=== PATIENT | female | born 2000 | race Caucasian/White ===

== ENCOUNTER → 2021-07-21 07:39 | Outpatient (BNVA) | payer MEDICAID, SELFPAY | PROVIDERS: Family Provider Family Medicine; Visit Provider Nurse Practitioner Women's Health | DX: N92.6 Irregular menstruation, unspecified (principal); Z82.79 Family history of other congenital malformations, deformations and chromosomal abnormalities | CPT/HCPCS: 81025 ==

== ENCOUNTER → 2021-08-22 08:19 | Outpatient (BNVA) | payer MEDICAID, SELFPAY | PROVIDERS: Family Provider Family Medicine; Visit Provider Obstetrics & Gynecology | DX: Z34.01 Encounter for supervision of normal first pregnancy, first trimester (principal) | CPT/HCPCS: 80307; 81000; 85027; 86592; 86762; 86803; 86850; 86900; 87086; 87340; 87491; 87591; 88175 ==

== ENCOUNTER → 2021-09-15 09:51 | Outpatient (BNVA) | payer MEDICAID, SELFPAY | PROVIDERS: Family Provider Family Medicine; Visit Provider Obstetrics & Gynecology | DX: O98.812 Other maternal infectious and parasitic diseases complicating pregnancy, second trimester (principal); A74.9 Chlamydial infection, unspecified | CPT/HCPCS: 84315; 87491 ==

== ENCOUNTER → 2021-10-11 10:56 | Outpatient (BNVA) | payer MEDICAID, SELFPAY | PROVIDERS: Family Provider Family Medicine; Visit Provider Obstetrics & Gynecology | DX: Z34.92 Encounter for supervision of normal pregnancy, unspecified, second trimester (principal); Z3A.19 19 weeks gestation of pregnancy | CPT/HCPCS: 76805 ==

== ENCOUNTER → 2021-11-10 09:22 | Outpatient (BNVA) | payer MEDICAID, SELFPAY | PROVIDERS: Family Provider Family Medicine; Visit Provider Obstetrics & Gynecology | DX: O26.899 Other specified pregnancy related conditions, unspecified trimester (principal); R31.9 Hematuria, unspecified | CPT/HCPCS: 82950; 84315; 87086 ==

== ENCOUNTER → 2021-11-20 08:29 | Outpatient (BNVA) | payer MEDICAID, SELFPAY | PROVIDERS: Family Provider Family Medicine; Visit Provider Obstetrics & Gynecology | DX: Z34.02 Encounter for supervision of normal first pregnancy, second trimester (principal) | CPT/HCPCS: 82951; 82952 ==

== ENCOUNTER → 2021-12-08 11:01 | Outpatient (BNVA) | payer MEDICAID, SELFPAY | PROVIDERS: Family Provider Family Medicine; Visit Provider Obstetrics & Gynecology | DX: Z34.02 Encounter for supervision of normal first pregnancy, second trimester (principal) | CPT/HCPCS: 84315; 85027 ==

== ENCOUNTER → 2021-12-22 08:42 | Outpatient (BNVA) | payer MEDICAID, SELFPAY | PROVIDERS: Family Provider Family Medicine; Visit Provider Obstetrics & Gynecology | DX: Z34.00 Encounter for supervision of normal first pregnancy, unspecified trimester (principal) | CPT/HCPCS: 84315; 87086 ==

== ENCOUNTER → 2022-02-02 11:01 | Outpatient (BNVA) | payer MEDICAID, SELFPAY | PROVIDERS: Family Provider Family Medicine; Visit Provider Obstetrics & Gynecology | DX: O99.013 Anemia complicating pregnancy, third trimester (principal) | CPT/HCPCS: 84315; 85025; 87081 ==

== ENCOUNTER → 2022-02-08 10:01 | Outpatient (BNVA) | payer MEDICAID, SELFPAY | PROVIDERS: Family Provider Family Medicine; Visit Provider Obstetrics & Gynecology | DX: Z34.00 Encounter for supervision of normal first pregnancy, unspecified trimester (principal) | CPT/HCPCS: 84315; 87086 ==

== ENCOUNTER → 2022-02-23 13:03 | Outpatient (BNVA) | payer MEDICAID, SELFPAY | PROVIDERS: Family Provider Family Medicine; Visit Provider Obstetrics & Gynecology | DX: Z34.93 Encounter for supervision of normal pregnancy, unspecified, third trimester (principal); Z3A.36 36 weeks gestation of pregnancy | CPT/HCPCS: 76816; 84315 ==

== ENCOUNTER → 2022-03-01 10:35 | Outpatient (BNVA) | payer MEDICAID, SELFPAY | PROVIDERS: Family Provider Family Medicine; Visit Provider Obstetrics & Gynecology | DX: O99.013 Anemia complicating pregnancy, third trimester (principal); Z82.79 Family history of other congenital malformations, deformations and chromosomal abnormalities | CPT/HCPCS: 76816; 76819; 84315; 87086 ==

== ENCOUNTER 2022-03-03 16:20 | Inpatient (IN) | payer MEDICAID, SELFPAY ==
[2022-03-03] VITALS (48 sets, daily range): BP systolic 98–148; BP diastolic 53–99; PULSE 58–96; RESP 16; TEMP 36.8; O2SAT 99–100; BMI 27.4
[2022-03-03] MEDS: miSOPROStol 100 mcg tablet 50 MCG PO (18:01)
--- NOTE | 2022-03-03 18:09 | P.HPUD_ITS ---
Labor & Delivery H&P Update Date of Procedure: March 03, 2022 Date H&P Performed: 03/03/22 Changes to previous documentation: Larissa is a 21 y/o 000 with an IUP 40W3D who presented for a scheduled elective IOL. This gestation has been complicated by Gonorrhea during early treatment and both her and partner, Miki were both adequately treated. GBS negative blood type A Rh+ the couple is expecting a daughter, Jolanta Azul. ROS: Denies headache, denies right upper quadrant pain, denies spots in vision, denies LOF, denies VB, denies uterine contractions, and appreciates good movement. PROCEDURE: 03/03/2022 at 5:40 PM * Bedside ultrasound revealed cephalic position * Place patient in the dorsolithotomy position * Inserted sterile speculum * Visualized the external os of the cervix which appeared closed * Grasped the Cook's balloon with ring forceps and then inserted into the external os * Past the Cook's into the uterus to the level of the vaginal balloon * Filled the uterine balloon with 80 mL of normal saline then removed the speculum * Filled the vaginal balloon with 60 mL of normal saline and then taped the catheter to the patient's thigh * Administered 50 mcg of misoprostol orally with intent to provide an additional 2 doses every 4 hours * Patient tolerated the procedure well albeit mild cramping ensued * EBL: None * Complications: None NST/MANAGER DRILLING: Baseline: 145 Variability: Moderate Accelerations: Present Decelerations: Absent [place]: Initially every 9 minutes--> after placement of Cook's catheter irregular with significant irritability Category: I Reactive/Passed Admission Diagnosis: Term @ 40W3D Primary indication for procedure: Desire of patient Planned procedure: Cervical ripening in anticipation of induction of labor
[2022-03-03 18:58] LABS: Basophils % 0.2 %; Eosinophils # 0.1 10^3/uL (0.0-0.8); Eosinophils % 0.6 %; Hematocrit 34.4 % (37.0-47.0); Hemoglobin 11.8 g/dL (11.5-15.3); Lymphocytes # 1.7 10^3/uL (0.8-4.8); Lymphocytes % 19.2 %; Mean Corpuscular HGB Conc 34.3 g/dL (30.0-36.0); Mean Corpuscular Hemoglobin 31.1 pg (28.0-34.0); Mean Corpuscular Volume 90.5 fl (81-99); Mean Platelet Volume 12.1 fL (7.4-10.4); Monocytes # 0.6 10^3/uL (0.2-0.9); Monocytes % 6.5 %; Neutrophils # 6.57 10^3/uL (1.8-7.7); Neutrophils % 73.1 %; Nucleated Red Blood Cells % 0 %; Platelet Count 221 10^3/cmm (130-400); Red Cell Distribution Width 12.4 % (12.1-15.1)
[2022-03-03] MEDS: lactated ringers 1,000 ML 999 ML IV ×2 (21:03→22:08)
--- NOTE | 2022-03-03 22:27 | ANES.PREANE2 ---
Pre-Anesthetic Assessment Height/Weight: Height 1.6 m Weight 70.307 kg Temp Pulse Resp BP Pulse Ox O2 Del Method 98.2 F 67 16 135/60 100 03/03/22 15:37 03/03/22 22:23 03/03/22 18:10 03/03/22 22:22 03/03/22 22:23 03/03/22 18:10 Preop Diagnosis: expected Labor Epidural Familial anesthetic complications: None Was Beta Yadi taken within 24 hours: N/A Was Clonidine taken within 24 hours: N/A Last intake: 03/03/22 @2100 Social No alcohol and No tobacco Exam alert, oriented x 3, clear to auscultation bilaterally and regular rate & rhythm Airway Submandibular: within normal limits Cervical ROM: within normal limits Mallampati: Class I History/ROS No significant history except as noted Pulmonary None reported CV/HEM None reported None reported Hepatic None reported GI None reported Metabolic None reported Musc/skel None reported Neuropsych None reported Anesthetic Plan ASA status: 2 Anesthesia: Anesthesia Evaluation and Regional (specify below) (Epidural) Risk of > 500 ml blood loss (7ml/kg in children): No Medications/Allergies Home Medications Medication Instructions Recorded Confirmed Last Taken Type prenat.vits,yvonne,bwy-gbfd-sdzqq 1 tab PO DAILY 07/21/21 03/01/22 Unknown History docusate sodium 100 mg capsule 100 mg PO BID 90 days #180 caps 12/11/21 03/01/22 Unknown Rx (Colace) ferrous sulfate 325 mg (65 mg 325 mg PO DAILY Anemia #90 tabs 01/05/22 03/01/22 Unknown Rx iron) tablet,delayed release Allergies Allergy/AdvReac Type Severity Reaction Status Date / Time No Known Allergies Allergy Verified 03/01/22 10:41 Current Medications Generic Name Dose Route Start Last Admin Trade Name Freq PRN Reason Stop Dose Admin Lactated Ringer's 1,000 mls @ 999 mls/hr 03/03/22 20:49 03/03/22 21:03 Lactated Ringers IV 999 mls/hr .Q1H1M PRN Administration See label comments PFSH Anesthesia Medical History No pertinent past medical history neghx: htn,dm,thyroid,dvt/pe PCP: None Surgical History No pertinent past surgical history Family History Grandmother Diabetes Maternal Denies family history of Colon cancer Ovarian cancer Heart disease Hypercholesteremia Breast cancer Hypertension Uterine cancer Thyroid disease Stroke Social History Smoking and tobacco status: never smoked Female Reproductive History : 1 Data Anesthesia : 03/03/22 15:45 Short CBC 03/03/22 Range/Units 15:45 WBC 9.0 (4.0-10.0) 10^3/uL Hgb 11.8 (11.5-15.3) g/dL Hct 34.4 L (37.0-47.0) % MCV 90.5 (81-99) fl Plt Count 221 (130-400) 10^3/cmm Neut % (Auto) 73.1 % Neut # (Auto) 6.57 (1.8-7.7) 10^3/uL Cardiac Studies: No Data to Display Anesthesia Procedures Date of Procedure 03/03/22 Epidural Time Out Performed: Yes Consents Signed: Procedure Consent Consent: from patient Lumbar Level: L4-L5 Epidural position: sitting Epidural procedure: sterile prep of area, 1% lidocaine to numb the area, 18 g needle, negative for paresthesia passed, neg for paresthesia, test dose given, 1.5% xylocaine 1:200k epi, placed PCEA, no systemic response, sterile dressing applied, L.U.D. no apparent complications and 0.2% Ropiavacaine @ mls/hr (13)
[2022-03-04] VITALS (65 sets, daily range): BP systolic 93–140; BP diastolic 46–89; PULSE 56–123; RESP 14–16; TEMP 36.3–37.7; O2SAT 98
[2022-03-04] MEDS: dextrose 5%-lactated ringers 1,000 ML 125 ML IV ×3 (01:54→12:44)
--- NOTE | 2022-03-04 06:50 | PC.NURSE ---
Vaginal Balloon deflated. 55ml removed, unable to remove any additional fluid.
[2022-03-04] MEDS: miSOPROStol 100 mcg tablet 50 MCG PO (07:33)
--- NOTE | 2022-03-04 10:39 | PC.NURSE ---
Cervical ripening balloon out with SVE at 1019. Balloon intact. SVE 6cm, 75%, -2 station. Pt believes her water broke because she felt a pop. No membranes were felt on SVE. No obvious fluid noted, small amount of brownish pink mucous discharge.
--- NOTE | 2022-03-04 11:40 | PM.OBGYPN ---
INFRASTRUCTURE ENGINEER Subjective Subjective: Interval history: Larissa?is a 21 y/o 000 with an IUP 40W4D who was admitted on 03/03/2022 for scheduled elective IOL. This gestation has been complicated by Gonorrhea during early treatment and both her and partner,?Miki?were both adequately treated.? GBS negative blood type A Rh+ the couple is expecting a daughter,?Jolanta Azul. HOSPITAL COURSE: Since admit has had Cook's Balloon for mechanical cervical ripening. The Vaginal balloon was deflated after 13.5 hours and the uterine balloon expelled on its own ~ 1000. Received 2 doses of 50 mcg PO misoprostol and an epidural without incident. ROS: Denies headache, denies right upper quadrant pain, denies spots in vision, endorses LOF, endorses; light VB, uterine contractions barely appreciated since epidural albeit now appreciating significant pressure, and still appreciates good movement. Labor: Dilation (cm): 7 Effacement (%): 80 Station: 0 Amniotic Membrane Status: Ruptured Monitor Mode: External Contraction Frequency: 3 Contraction Pattern: Regular Status: Category I (with intermittent II secondary to variables) Vitals/I&O/Wt Last Vital Signs Temp 99.3 F 03/04/22 10:27 Pulse 86 03/04/22 11:50 Resp 16 03/03/22 18:10 BP 126/74 03/04/22 11:50 Pulse Ox 99 03/03/22 22:38 O2 Del Method 03/03/22 18:10 03/03/22 03/04/22 03/04/22 22:59 06:59 14:59 Intake Total 1000 / 1000 443.75 / 1443.75 100 / 100 Output Total 800 / 800 Balance 1000 / 1000 -356.25 / 643.75 100 / 100 Weight last 48 hrs Weight 155 lb Physical Exam Const: COMMON NORMALS: no acute distress, average body habitus, patient oriented x3, no limitations, healthy appearing, alert and well nourished Neuro: COMMON NORMALS: patient oriented x3 SENSORIUM/ORIENTATION: Yes alert Urinary Catheter Management: Gaytan: Cath Placed During This Visit: yes Reason for Continuing Indwelling Catheter: Other Urinary Catheter Date of Insertion: 03/03/22 Urinary Catheter Time of Insertion: 23:30 Data : 03/03/22 15:45 A&P Assessment and plan (1) SROM (spontaneous rupture of membranes): Considering Pitocin augmentation however has made appropriate cervical change without further augmentation. Status: Acute (2) Alteration in comfort associated with uterine contractions: Continue Epidural Status: Acute (3) 40 weeks gestation of : Anticipate Status: Acute Attestations Medical Necessity Statement*: Labor management, delivery, care Coding Level of Care Code Acute Manager Enterprise Content Management for Chg Fwd Diagnoses SROM (spontaneous rupture of membranes) Alteration in comfort associated with uterine contractions N85.8 40 weeks gestation of Z3A.40
--- NOTE | 2022-03-04 11:43 | P.PN_ITS ---
RESISTOR TESTER Subjective Subjective: Interval history: Larissa?is a 21 y/o 000 with an IUP 40W4D who was admitted on 03/03/2022 for scheduled elective IOL. This gestation has been complicated by Gonorrhea during early treatment and both her and partner,?Miki?were both adequately treated.? GBS negative blood type A Rh+ the couple is expecting a daughter,?Jolanta Azul. HOSPITAL COURSE: Since admit has had Cook's Balloon for mechanical cervical ripening. The Vaginal balloon was deflated after 13.5 hours and the uterine balloon expelled on its own ~ 1000. Received 2 doses of 50 mcg PO misoprostol and an epidural without incident. ROS: Denies headache, denies right upper quadrant pain, denies spots in vision, endorses LOF, endorses; light VB, uterine contractions barely appreciated since epidural, and still appreciates good movement. Labor: Pain Control: tolerating well and epidural Dilation (cm): 5 Effacement (%): 75 Station: 0 Amniotic Membrane Status: Ruptured Monitor Mode: External Contraction Frequency: 3 Contraction Pattern: R egular Status: Category I Vitals/I&O/Wt Last Vital Signs 03/04/22 08:10 03/04/22 08:30 03/04/22 08:48 Temperature 99.7 F H Pulse Rate 61 66 Blood Pressure 127/80 126/82 03/04/22 08:50 03/04/22 09:10 03/04/22 09:30 Temperature Pulse Rate 68 70 80 Blood Pressure 118/76 120/76 119/81 03/04/22 09:51 03/04/22 10:10 03/04/22 10:27 Temperature 99.3 F Pulse Rate 78 78 Blood Pressure 120/70 140/89 03/04/22 10:30 03/04/22 10:50 Temperature Pulse Rate 87 67 Blood Pressure 118/75 123/75 03/03/22 03/04/22 03/04/22 22:59 06:59 14:59 Intake Total 1000 / 1000 443.75 / 1443.75 Output Total 800 / 800 Balance 1000 / 1000 -356.25 / 643.75 Weight last 48 hrs Weight 155 lb Physical Exam Const: COMMON NORMALS: no acute distress, average body habitus, patient oriented x3, no limitations, healthy appearing, alert and well nourished Eye: COMMON NORMALS: EOMs intact bilaterally Neck/C-Spine: COMMON NORMALS: full ROM Cardio: COMMON NORMALS: regular rate and regular rhythm RATE: regular rate RHYTHM: regular rhythm Neuro: COMMON NORMALS: patient oriented x3 and deep tendon reflexes 2+ bilaterally SENSORIUM/ORIENTATION: Yes alert Psych: COMMON NORMALS: mental status grossly normal, Normal thought process present, cooperative, normal affect, speech normal and activity/motor behavior normal SPEECH: Yes normal speech THOUGHT PROCESS: Normal thought process present Urinary Catheter Management: Gaytan: Cath Placed During This Visit: yes Reason for Continuing Indwelling Catheter: Other Urinary Catheter Date of Insertion: 03/03/22 Urinary Catheter Time of Insertion: 23:30 Data : 03/03/22 15:45 A&P Assessment and plan (1) 40 weeks gestation of : Status: Acute (2) Alteration in comfort associated with uterine contractions: Status: Acute (3) SROM (spontaneous rupture of membranes): Status: Acute Plan Early labor status post SROM with return of clear fluid * Pitocin augmentation * Continue to titrate Epidural * Anticipate Attestations Medical Necessity Statement*: Management of labor, delivery, and care Coding Level of Care Code Acute Water And Gas Helper for Chg Fwd Diagnoses 40 weeks gestation of Z3A.40 Alteration in comfort associated with uterine contractions N85.8 SROM (spontaneous rupture of membranes)
[2022-03-04] MEDS: acetaminophen 325 mg Tablet 650 MG PO (13:52)
[2022-03-04] MEDS: oxytocin 30 UNIT/500 ML BAG 999 UNIT IV (15:05)
[2022-03-04] MEDS: lidocaine 2% INJ 20 mL INJECTION (15:15)
--- NOTE | 2022-03-04 16:00 | PM.DELIVERY ---
Delivery Note: Date of delivery: March 04, 2022 Pre-delivery diagnoses: Desire for induction of labor IUP 40 W4D Post-delivery diagnoses: Status post term at 40 W4D Procedure: Normal spontaneous vaginal delivery Delivering Physician: Hina Ruvalcaba MD, FACOG Estimated blood loss (mL): 300 Findings: Second-degree perineal laceration with vaginal extension Viable Girl, Jolanta Azul APGARS: Weight: 3350 grams ( 7lbs and 6.17 oz) [place] was taken to the nursery for continued resuscitation secondary to slow transitioning. Ultimately, transferred out of hospital to [facility]. Pre-Delivery Course: Larissa?is a 21 y/o 000 with an I UP 40W4D dated by LMP and 9 week US who was admitted o n 03/03/2022 for sc heduled elective I OL. This gestation has been complica ottoniel by Gonorrhea d uring early treatm ent and both her a nd partner,?Miki?w ere both adequatel y treated.? GBS ne gative blood type A Rh+ the couple is expecting a da ughter,?Phoebe Dah willie. HOSPITAL COU RSE: Since admit h as had Cook's Ball oon for mechanical cervical ripening . The Vaginal ball oon was deflated a fter 13.5 hours an d the uterine ball oon expelled on it s own ~ 1000. Rece ived 2 doses of 50 mcg PO misoprosto l and an epidural without incident. Never required any further labor aug mentation. Labor:?? Course be wilfredo with placement of Cook's Balloon for mechanical ce rvical ripening. T he Vaginal balloon was deflated afte r 13.5 hours and t he uterine balloon expelled on its o wn ~ 1000. Receive d 2 doses of 50 mc g PO misoprostol a nd an epidural wit hout incident. Nev er required any fu rther labor augmen tation. Upon Logan e achieving comple te dilation, +2 st ation and apprecia ting extreme press ure she was placed in a modified McR oberts position. o n pushing and she pushed very effect ively. With curriculum coach ing the patient pu shed and brought t he 's head t o the perineum. T he perineum appear ed adequate. The patient pushed aga in and he had red cliff ns in the LOP posi tion. The posterio r shoulder deliver ed with an upward motion, and the re mainder of the inf ant's body deliver ed without any dif ficulty. While in lisa cried spontan eously it was a bi t delayed. The in lisa was placed on the mother's abdo men and resuscitat ed by the nurse. Delayed cord clamp ing was performed. Cord blood was o btained. Pitocin was administered a nd the placenta de livered spontaneou sly and was found to be intact and c omplete with a vibha trally inserted th ree-vessel cord al beit the cord was very thin. Viable Girl, Emilie be Latha APGARS: Weight: 3350 grams ( 7lbs and 6.17 oz) [place] was taken to [facility] nursery for con tinued resuscitati on secondary to sl ow transitioning. Ultimately, trans ferred out of hosp ital to [facility] NICU. Pain Control: apin g well and epidura l? Dilation (cm): 5? Ef, the Fpcem ent (%): 75? Station: 0? Amnio tic Membrane Statu s: Ruptured? Monit or Mode: External? Contraction Frequ ency: 3? Contracti on Pattern: Regula r? Status: C ategory I Delivery: complicated by second-degree laceration that was repaired in usual fashion. Post-Delivery Status: Larissa is well and is coping well. The FOB and her mother are present and supportive. Anticipates formula feeding. History History History 1 Term Miscarriages/Ectopic Living Children A&P Assessment and plan (1) Care and examination immediately after delivery: Status: Acute (2) History of vaginal delivery: Status: Acute Plan Routine care Coding Level of Care Code Acute Judicial Reporter for Chg Fwd Diagnoses Care and examination immediately after delivery Z39.0 History of vaginal delivery
[2022-03-04] MEDS: docusate sodium 100 mg Capsule PO (17:38)
[2022-03-04] MEDS: benzocaine-menthol 78 gm Canister 1 SPRAY TOPICAL (18:30)
--- NOTE | 2022-03-04 18:45 | PC.NURSE ---
Pt ambulated to bathroom without difficulty. Pt voided 500 mL. Sophie care completed, tucks and dermoplast applied. Pt then ambulated to PP room OB 8. Oriented to room and call light.
[2022-03-04] MEDS: ibuprofen 800 mg tablet PO (21:32)
--- NOTE | 2022-03-04 21:50 | P.DS_ITS ---
Discharge Providers Date of Admission: 03/03/22 18:10 Date of Discharge: March 05, 2022 Attending Provider at Admission: Hina Ruvalcaba MD Attending Provider at Discharge: Hina Ruvalcaba MD Primary Care Provider: [employer] Diagnoses at Discharge Discharge Diagnosis (1) Care and examination immediately after delivery: Details from hospital stay: Rogeris a 21 y/o 000 with an IUP 40W4D dated by LMP and 9 week US who was admitted on 03/03/2022 for scheduled elective IOL. This gestation has been complicated by Gonorrhea during early treatment and both her and partner,?Miki ?were both adequately treated.? GBS negative blood type A Rh+ . HOSPITAL COURSE: Since admit has had Cook's Balloon for mechanical cervical ripening. The Vaginal balloon was deflated after 13.5 hours and the uterine balloon expelled on its own ~ 1000. Received 2 doses of 50 mcg PO misoprostol and an epidural without incident. Never required any further labor augmentation. Went on to experience a complicated by a second-degree laceration which was repaired in the usual fashion. Patient opted for early discharge secondary to transfer of to the NICU at an outside facility. Viable Girl, Chelyebbc Azul APGARS: 5 7 / 9 Weight: 3350 grams ( 7lbs and 6.17 oz) was taken to the nursery for continued resuscitation secondary to slow transitioning. Ultimately, transferred out of hospital to [facility]. Status: Acute (2) History of vaginal delivery: Details from hospital stay: Dr. Sean Dee given report of events as to avoid lost to follow-up of Larissa. Status: Acute Reason for Visit Reason for Visit: Induction Brief History: Elective IOL Hospital Course Hospital Course Rogeris a 21 y/o 000 with an IUP 40W4D dated by LMP and 9 week US who was admitted on 03/03/2022 for scheduled elective IOL. This gestation has been complicated by Gonorrhea during early treatment and both her and partner,?Miki ?were both adequately treated.? GBS negative blood type A Rh+ . HOSPITAL COURSE: Since admit has had Cook's Balloon for mechanical cervical ripening. The Vaginal balloon was deflated after 13.5 hours and the uterine balloon expelled on its own ~ 1000. Received 2 doses of 50 mcg PO misoprostol and an epidural without incident. Never required any further labor augmentation. Went on to experience a complicated by a second-degree laceration which was repaired in the usual fashion. Patient opted for early discharge secondary to transfer of to the NICU at an outside facility. Viable Infant Girl, Jolanta Azul APGARS: 9 Weight: 3350 grams ( 7lbs and 6.17 oz) [place] was taken to the nursery for continued resuscitation secondary to slow transitioning. Ultimately, transferred out of hospital to [facility]. Physical Exam Const: COMMON NORMALS: no acute distress, average body habitus, patient oriented x3, no limitations, healthy appearing and well nourished Chest: COMMONS NORMALS: normal inspection of the chest and normal inspection of the breasts Resp: COMMON NORMALS: normal respiratory effort and clear to auscultation bilaterally AUSCULTATION: clear to auscultation bilaterally Cardio: COMMON NORMALS: regular rate and regular rhythm RATE: regular rate RHYTHM: regular rhythm : EXTERNAL FEMALE EXAM: Yes normal appearance of the urethra and Yes other OTHER: hemostatic perineum and vagina status post repair of second-degree and vaginal extension Neuro: COMMON NORMALS: patient oriented x3 Psych: COMMON NORMALS: mental status grossly normal, Normal thought process present, cooperative, normal affect, speech normal and activity/motor behavior normal SPEECH: Yes normal speech THOUGHT PROCESS: Normal thought process present Urinary Catheter Management: Gaytan: Cath Placed During This Visit: yes, but has since been removed by the nurse Reason for Continuing Indwelling Catheter: Decision to DC Catheter Urinary Catheter Date of Insertion: 03/03/22 Urinary Catheter Time of Insertion: 23:30 Date Urinary Catheter Removed: 03/04/22 Time Urinary Catheter Discontinued: 14:23 Discharge Data Studies Completed and Pending Laboratory Results WBC 9.0 10^3/uL (4.0-10.0) 03/03/22 15:45 RBC 3.80 10^6/uL (4.1-5.3) L 03/03/22 15:45 Hgb 11.8 g/dL (11.5-15.3) 03/03/22 15:45 Hct 34.4 % (37.0-47.0) L 03/03/22 15:45 MCV 90.5 fl (81-99) 03/03/22 15:45 MCH 31.1 pg (28.0-34.0) 03/03/22 15:45 MCHC 34.3 g/dL (30.0-36.0) 03/03/22 15:45 RDW 12.4 % (12.1-15.1) 03/03/22 15:45 Plt Count 221 10^3/cmm (130-400) 03/03/22 15:45 MPV 12.1 fL (7.4-10.4) H 03/03/22 15:45 Neut % (Auto) 73.1 % 03/03/22 15:45 Lymph % (Auto) 19.2 % 03/03/22 15:45 Lynn % (Auto) 6.5 % 03/03/22 15:45 Eos % (Auto) 0.6 % 03/03/22 15:45 Baso % (Auto) 0.2 % 03/03/22 15:45 Neut # (Auto) 6.57 10^3/uL (1.8-7.7) 03/03/22 15:45 Lymph # (Auto) 1.7 10^3/uL (0.8-4.8) 03/03/22 15:45 Lynn # (Auto) 0.6 10^3/uL (0.2-0.9) 03/03/22 15:45 Eos # (Auto) 0.1 10^3/uL (0.0-0.8) 03/03/22 15:45 Baso # (Auto) 0.0 10^3/uL (0.0-0.1) 03/03/22 15:45 Nucleated RBC % (auto) 0 % 03/03/22 15:45 Nucleated RBCs # 0.0 /100WBC 03/03/22 15:45 Vitals Last Vital Signs Temp 98.2 F 03/05/22 00:04 Pulse 63 03/05/22 00:04 Resp 16 03/05/22 00:04 BP 129/75 03/04/22 23:55 Pulse Ox 98 03/05/22 00:04 O2 Del Method 03/04/22 23:55 Discharge Plan Discharge Patient Disposition: Home Prescriptions: No Action prenat.vits,yvonne,gej-putp-pgyzb Tablet 1 tab PO DAILY ibuprofen 600 mg Tablet 600 mg PO QID PRN (Reason: pain) acetaminophen 325 mg Tablet 650 mg PO QID PRN (Reason: pain) Discharge Orders: Discharge Order (Routine); Ordered 03/04/22 Ordered By: Hina Ruvalcaba Referrals: [facility] Providers [Provider Group] - 1 week (* Please call first thing saturday [place] for your 1 week appointment) Discharge Diet: Usual diet Discharge Activity: Increase activity as tolerated Patient Instructions: Depression (DC), Bleeding (DC), Preeclampsia and Eclampsia After Delivery (GEN), OB Discharge Report, OB Food/Drug Interaction Guide, OB Care at Home, Opioid Safety, OB Pos tpartum Home Care, OB Vaginal Deliveries - [facility] Discharge Attestations Time Spent in Discharge Care*: greater than 30 min Specific Discharge Activities: discussing with pcp/other providers Quality Metrics Clinical Quality Measures [ No reported AMI, CVA or VTE this stay] Coding Level of Care Code Acute Chg FW DC note Diagnoses Care and examination immediately after delivery Z39.0 History of vaginal delivery
--- NOTE | 2022-03-04 23:55 | PC.NURSE ---
Discharge instructions given and reviewed with patient by Yaquelin Fabian RN. Patient educated to contact clinic for follow up appt in 1 week.
[2022-03-05 00:04] VITALS: PULSE 63; RESP 16; TEMP 36.8; O2SAT 98
--- NOTE | 2022-03-06 16:20 | ANE.PACU2 ---
Inpatient post-anesthesia follow up: Airway intact: Yes Vital signs: Temperature 98.2 F Pulse Rate 63 Respiratory Rate 16 Blood Pressure 129/75 Pulse Oximetry 98 Oxygen Delivery Me thod Room Air Oxygen Flow Rate Fraction of Inspir ed Oxygen Hydration adequate: Yes Nausea and vomiting: No Pain level: 1 Mental status: Baseline Additional Comments: EMR review
== END 2022-03-04 23:55 | disposition home or self-care (01) | DRG 807 ==
LOC: OPOB 16:21 → OBGYN 16:21
PROVIDERS: Admitting Provider Obstetrics & Gynecology; Visit Provider Obstetrics & Gynecology
DX: O48.0 Post-term pregnancy (principal); Z37.0 Single live birth; O70.1 Second degree perineal laceration during delivery; Z3A.40 40 weeks gestation of pregnancy; Z86.19 Personal history of other infectious and parasitic diseases
CPT/HCPCS: 12345; 36415; 51702; 59025; 59409; 85025; G0378; J2795

== ENCOUNTER → 2024-04-17 12:59 | Outpatient (BNVA) | payer MEDICAID, SELFPAY | PROVIDERS: Visit Provider Nurse Practitioner Women's Health | DX: Z34.90 Encounter for supervision of normal pregnancy, unspecified, unspecified trimester (principal) | CPT/HCPCS: 81025 ==

== ENCOUNTER → 2024-04-20 14:30 | Outpatient (BNVA) | payer MEDICAID, SELFPAY | PROVIDERS: Visit Provider Obstetrics & Gynecology | DX: Z36.87 Encounter for antenatal screening for uncertain dates (principal); Z3A.08 8 weeks gestation of pregnancy | CPT/HCPCS: 76801 ==

== ENCOUNTER → 2024-05-06 14:00 | Outpatient (BNVA) | payer MEDICAID, SELFPAY | PROVIDERS: Visit Provider Nurse Practitioner Women's Health | DX: Z34.90 Encounter for supervision of normal pregnancy, unspecified, unspecified trimester (principal); Z34.80 Encounter for supervision of other normal pregnancy, unspecified trimester | CPT/HCPCS: 80307; 84315; 85025; 86592; 86762; 86803; 86850; 86900; 87077; 87086; 87184; 87340; 87806 ==

== ENCOUNTER → 2024-05-21 14:26 | Outpatient (BNVA) | payer MEDICAID, SELFPAY | PROVIDERS: Visit Provider Obstetrics & Gynecology | DX: Z34.80 Encounter for supervision of other normal pregnancy, unspecified trimester (principal) | CPT/HCPCS: 84315; 87491; 87591 ==

== ENCOUNTER → 2024-06-11 15:25 | Outpatient (BNVA) | payer MEDICAID, SELFPAY | PROVIDERS: Visit Provider Nurse Practitioner Women's Health | DX: O23.41 Unspecified infection of urinary tract in pregnancy, first trimester (principal) | CPT/HCPCS: 84315; 87086 ==

== ENCOUNTER → 2024-07-09 14:28 | Outpatient (BNVA) | payer MEDICAID, SELFPAY | PROVIDERS: Visit Provider Obstetrics & Gynecology | DX: Z34.92 Encounter for supervision of normal pregnancy, unspecified, second trimester (principal); Z3A.19 19 weeks gestation of pregnancy | CPT/HCPCS: 76805 ==

== ENCOUNTER → 2024-07-16 14:38 | Outpatient (BNVA) | payer MEDICAID, SELFPAY | PROVIDERS: Visit Provider Obstetrics & Gynecology | DX: Z34.80 Encounter for supervision of other normal pregnancy, unspecified trimester (principal) | CPT/HCPCS: 84315 ==

== ENCOUNTER → 2024-08-14 12:46 | Outpatient (BNVA) | payer MEDICAID, SELFPAY | PROVIDERS: Visit Provider Nurse Practitioner Women's Health | DX: Z34.92 Encounter for supervision of normal pregnancy, unspecified, second trimester (principal) | CPT/HCPCS: 82950; 84315 ==

== ENCOUNTER → 2024-08-31 15:17 | Outpatient (BNVA) | payer MEDICAID, SELFPAY | PROVIDERS: Visit Provider Nurse Practitioner Women's Health | DX: Z34.92 Encounter for supervision of normal pregnancy, unspecified, second trimester (principal); Z3A.27 27 weeks gestation of pregnancy | CPT/HCPCS: 76816 ==

== ENCOUNTER → 2024-09-04 11:03 | Outpatient (BNVA) | payer MEDICAID, SELFPAY | PROVIDERS: Visit Provider Obstetrics & Gynecology | DX: Z34.80 Encounter for supervision of other normal pregnancy, unspecified trimester (principal) | CPT/HCPCS: 84315; 85025 ==

== ENCOUNTER → 2024-09-21 12:55 | Outpatient (BNVA) | payer MEDICAID, SELFPAY | PROVIDERS: Visit Provider Obstetrics & Gynecology | DX: Z34.80 Encounter for supervision of other normal pregnancy, unspecified trimester (principal) | CPT/HCPCS: 84315 ==

== ENCOUNTER 2024-10-06 15:13 | Outpatient (CLI) | payer MEDICAID, SELFPAY ==
[2024-10-06 15:26] VITALS: BP 129/84; PULSE 74
[2024-10-06 15:41] VITALS: BP 117/73; PULSE 73
[2024-10-06 15:56] VITALS: BP 116/68; PULSE 88
[2024-10-06 16:00] VITALS: BP 116/88; PULSE 88; RESP 16
== END 2024-10-06 16:05 | disposition home or self-care (01) ==
LOC: OPOB 15:17 → OBGYN 15:18
PROVIDERS: Visit Provider Obstetrics & Gynecology
DX: O99.891 Other specified diseases and conditions complicating pregnancy (principal); Z3A.00 Weeks of gestation of pregnancy not specified
CPT/HCPCS: 59025; 84315; 99211

== ENCOUNTER → 2024-10-21 14:03 | Outpatient (BNVA) | payer MEDICAID, SELFPAY | PROVIDERS: Visit Provider Nurse Practitioner Women's Health | DX: Z34.80 Encounter for supervision of other normal pregnancy, unspecified trimester (principal) | CPT/HCPCS: 84315 ==

== ENCOUNTER → 2024-11-03 13:26 | Outpatient (BNVA) | payer MEDICAID, SELFPAY | PROVIDERS: Visit Provider Nurse Practitioner Women's Health | DX: Z34.80 Encounter for supervision of other normal pregnancy, unspecified trimester (principal); Z36.9 Encounter for antenatal screening, unspecified | CPT/HCPCS: 76816; 84315; 87081 ==

== ENCOUNTER → 2024-11-11 13:07 | Outpatient (BNVA) | payer MEDICAID, SELFPAY | PROVIDERS: Visit Provider Obstetrics & Gynecology | DX: Z34.80 Encounter for supervision of other normal pregnancy, unspecified trimester (principal) | CPT/HCPCS: 84315 ==

== ENCOUNTER → 2024-11-18 10:14 | Outpatient (BNVA) | payer MEDICAID, SELFPAY | PROVIDERS: Visit Provider Nurse Practitioner Women's Health | DX: Z34.80 Encounter for supervision of other normal pregnancy, unspecified trimester (principal) | CPT/HCPCS: 84315 ==

== ENCOUNTER 2024-11-24 07:28 | Inpatient (IN) | payer MEDICAID, SELFPAY ==
[2024-11-24] VITALS (37 sets, daily range): BP systolic 112–144; BP diastolic 56–87; PULSE 57–104; RESP 16–126; TEMP 36.7–37.2; O2SAT 98; BMI 28.5
[2024-11-24 07:38] LABS: Basophils % 0.1 %; Hematocrit 28.6 % (36-47); Lymphocytes # 1.2 10^3/uL (0.8-4.8); Lymphocytes % 6.6 %; Mean Corpuscular HGB Conc 33.6 g/dL (30-55); Mean Corpuscular Volume 83.4 fl (85-98); Mean Platelet Volume 10.5 fL (7.4-10.4); Monocytes # 0.5 10^3/uL (0.2-0.9); Monocytes % 2.5 %; Neutrophils # 16.49 10^3/uL (1.8-7.7); Neutrophils % 89.9 %; Nucleated Red Blood Cells % 0 %; Platelet Count 266 10^3/cmm (157-399); Red Blood Count 3.43 10^6/uL (3.85-5.65); Red Cell Distribution Width 12.3 % (12.1-15.1); White Blood Count 18.32 10^3/uL (3.29-11.43)
[2024-11-24 07:48] LABS: Amphetamines Screen Urine Negative (Negative); Barbiturates Screen Urine Negative (Negative); Benzodiazepines Screen Urine Negative (Negative); Cocaine Screen Urine Negative (Negative); Opiate Screen Urine Negative (Negative); PCP Screen Urine Negative (Negative); THC Screen Urine Positive (Negative)
--- NOTE | 2024-11-24 08:15 | PM.OBGYHP ---
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 FITTER History of Present Illness Larissa Camp is a 24 year old female EDC November 29, 2024 At 39 w 2 d No complications Presented to L&D c/o painful uterine contractions No bleeding or fluid leakage + active movements h/o x one Present Details : 2 Para: 1 Labs Rubella: Immune RPR: Negative GBS: Negative Medications/Allergies Home Medications ?Medication ?Instructions ?Recorded ?Confirmed ?Last Taken ?Type docosahexaenoic acid 200 mg 200 mg PO 1XD 04/17/24 11/24/24 Unknown History capsule ( DHA) duloxetine 60 mg capsule,delayed 60 mg PO DAILY #30 caps 11/06/24 11/24/24 Unknown Rx release (Cymbalta) Allergies Allergy/AdvReac Type Severity Reaction Status Date / Time No Known Allergies Allergy Verified 11/18/24 10:14 PFSH AIRDOX FITTER PFSH: Medical History Psychiatric care No pertinent past medical history neghx: htn,dm,thyroid,dvt/pe PCP: Hua Surgical History No pertinent past surgical history Family History Grandmother Diabetes Maternal Denies family history of Colon cancer Ovarian cancer Heart disease Hypercholesteremia Breast cancer Hypertension Uterine cancer Thyroid disease Stroke Social History Smoking and tobacco/nicotine status: never used tobacco/nicotine History History History 2 Term 1 0 Miscarriages/Ectopic 0 Living Children 1 Care JOSEPH Calculator Estimated Delivery Date Method Current WG Current Estimate 11/29/24 Ultrasound #1 44w 5d Other Estimates 11/27/24 LMP (Uncertain) 45w 0d Specific Issues/Plans DEPRESSION/ANXIETY/PTSD; managed with Cymbalta 60 mg daily Unknown LMP <del>UTI;</del> <del>treated</del> <del>with</del> <del>cephalexin</del> <del>500mg</del> <del>bid;</del> <del>SANJU</del> <del>Negative</del> Vitals/I&O/Wt Last Vital Signs Temp 98.1 F 11/25/24 12:10 Pulse 70 11/25/24 12:10 Resp 16 11/25/24 12:10 BP 118/63 11/25/24 12:10 Pulse Ox 98 11/25/24 12:10 O2 Del Method Room Air 11/25/24 09:48 Physical Exam Narrative: Weight 160 lbs; 5?3? VS normal General awake, alert Lungs: clear Cor: RRR FH 36 cm, cephalic Cervix: 8 cm / 100 / -1 / cephalic Ext: no edema External monitor: regular UCs heart tracing good variability, + accelerations Data 11/25/24 08:50 Results Labs OB ([facility]): Obstetrics US 11/03/24 Blood Type A Positive 11/24/24 Antibody Screen Negative 11/24/24 Hct, (36-47) 22.9 % L 11/25/24 Hgb, (11.27-16.99) 7.50 g/dL L 11/25/24 Rho(D) Type Rh positive 11/24/24 Plt Count, (157-399) 217 10^3/cmm Δ 11/25/24 Hep Bs Antigen, (Nonreactive) Non-reactive 05/06/24 Hepatitis C Antibody, (Nonreactive) Non-reactive 05/06/24 Rubella IgG Antibody, (0.0-10.0) 63.8 IU/mL H 05/06/24 RPR, (Nonreactive) Nonreactive 05/06/24 HIV 1&2 Ab & HIV 1 Ag, (Non-Reactiv) Non-reactive 05/06/24 C.trachomatis RNA (TMA), (NOT DETECTED) Not detected 05/21/24 N.gonorrhoeae RNA (TMA), (NOT DETECTED) Not detected 05/21/24 T. vaginalis Amp RNA, (NOT DETECTED) Not detected 05/21/24 Chlamydia/GC Comment See note 05/21/24 Glucose 1 Hr 50 gm, (85-140) 133 mg/dL 08/14/24 HCG, Qual, (Negative) Positive H 04/17/24 Urine Opiates Screen, (Negative) Negative ng/mL 11/24/24 Ur Barbiturates Screen, (Negative) Negative ng/mL 11/24/24 Ur Phencyclidine Scrn, (Negative) Negative ng/mL 11/24/24 Ur Amphetamines Screen, (Negative) Negative ng/mL 11/24/24 U Benzodiazepines Scrn, (Negative) Negative ng/mL 11/24/24 Urine Cocaine Screen, (Negative) Negative ng/mL 11/24/24 U Marijuana (THC) Screen, (Negative) Positive ng/mL H 11/24/24 Micro Urine Specimen 06/11/24 A&P Assessment and plan (1) Supervision of other normal : 39 w 2 d Active labor Admit Labor management h/o x one PDMP PDMP Reviewed: Not Reviewed Attestations Medical Necessity Statement*: patient at 39 w 2 d with active labor Coding Level of Care Code Acute Code for Chg Fwd Diagnoses Supervision of other normal Z34.80
[2024-11-24] MEDS: dextrose 5%-lactated ringers 1,000 ML 125 ML IV (08:46)
[2024-11-24] MEDS: tranexamic acid 1,000 MG/100 ML PREMIX 600 MG IV (08:46)
[2024-11-24] MEDS: lidocaine 2% INJ 20 mL INJECTION (08:46)
[2024-11-24] MEDS: oxytocin 30 UNIT/500 ML BAG 600 UNIT IV (08:46)
[2024-11-24] MEDS: miSOPROStol 200 mcg Tablet 800 MCG PR (08:49)
--- NOTE | 2024-11-24 09:26 | PM.DELIVERY ---
Delivery Note: Date of delivery: November 24, 2024 Pre-delivery diagnoses: 39 w 3 d active labor Post-delivery diagnoses: 39 w 3 d active labor vaginal delivery Procedure: vaginal delivery repair of second-degree perineal laceration Op report anesthesia: None Delivering Physician: David Vang MD Estimated blood loss (mL): 300 Findings: , vigorous female infant cord gases and blood obtained normal placenta and cord placenta meconium-stained second-degree perineal laceration repaired EBL: 300 cc no complications Pre-Delivery Course: normal labor course fetus reassuring throughout Delivery: vaginal Post-Delivery Status: good History History History 2 Term 1 0 Miscarriages/Ectopic 0 Living Children 1 A&P Assessment and plan (1) Vaginal delivery: PDMP PDMP Reviewed: Not Reviewed Coding Level of Care Code Acute Code for Chg Fwd Diagnoses Vaginal delivery O80
[2024-11-24] MEDS: methylergonovine 0.2 mg/mL INJ 1 mL IM (09:50)
--- NOTE | 2024-11-24 11:35 | PC.NURSE ---
0930 THIS DYE TUB OPERATOR WEIGHED ALL THE PADS AND THE TOTAL WAS 360.
--- NOTE | 2024-11-24 13:39 | PC.NURSE ---
1230 patient up to bathroom and then moved to ob 8, did well.
[2024-11-24] MEDS: ibuprofen 800 mg tablet PO ×2 (16:00→21:31)
[2024-11-24 21:09] LABS: Hematocrit 23.1 % (36-47); Mean Corpuscular HGB Conc 32.9 g/dL (30-55); Mean Corpuscular Hemoglobin 27.3 pg (27-33); Mean Corpuscular Volume 83.1 fl (85-98); Mean Platelet Volume 11.3 fL (7.4-10.4); Platelet Count 144 10^3/cmm (157-399); Red Blood Count 2.78 10^6/uL (3.85-5.65); Red Cell Distribution Width 12.3 % (12.1-15.1); White Blood Count 17.39 10^3/uL (3.29-11.43)
[2024-11-24] MEDS: docusate sodium 100 mg Capsule PO (21:31)
[2024-11-25 06:20] VITALS: BP 95/61; PULSE 64; RESP 16; TEMP 36.7
[2024-11-25 08:59] LABS: Hematocrit 22.9 % (36-47); Mean Corpuscular HGB Conc 32.8 g/dL (30-55); Mean Corpuscular Hemoglobin 28.3 pg (27-33); Mean Corpuscular Volume 86.4 fl (85-98); Mean Platelet Volume 10.3 fL (7.4-10.4); Platelet Count 217 10^3/cmm (157-399); Red Blood Count 2.65 10^6/uL (3.85-5.65); Red Cell Distribution Width 12.6 % (12.1-15.1); White Blood Count 12.13 10^3/uL (3.29-11.43)
[2024-11-25] MEDS: ibuprofen 800 mg tablet PO (09:47)
[2024-11-25] MEDS: PRENATAL VIT NO.130/IRON/FOLIC 1 EACH TABLET PO ×2 (09:47)
[2024-11-25 09:48] VITALS: BP 127/69; PULSE 76; RESP 16; TEMP 36.7; O2SAT 98
[2024-11-25] MEDS: docusate sodium 100 mg Capsule PO (09:48)
[2024-11-25 12:10] VITALS: BP 118/63; PULSE 70; RESP 16; TEMP 36.7; O2SAT 98
[2024-11-25] MEDS: ferrous sulfate EC 325 mg Tablet PO (12:12)
--- NOTE | 2024-11-25 14:20 | P.PN_ITS ---
GRAVURE PRESS OPERATOR Subjective 2 Subjective: Interval history: no c/o no bleeding, pain no dizziness, weakness, palpitation, shortness of breath eating, voiding, ambulating well caring for without any problems Labor: Station: -1 Amniotic Membrane Status: Ruptured Monitor Mode: Palpation Contraction Pattern: Regular Status: Category I Vitals/I&O/Wt Last Vital Signs Temp 98.1 F 11/25/24 09:48 Pulse 76 11/25/24 09:48 Resp 16 11/25/24 09:48 BP 127/69 11/25/24 09:48 Pulse Ox 98 11/25/24 09:48 O2 Del Method Room Air 11/25/24 09:48 Weight last 48 hrs Weight 161 lb Physical Exam 2 Narrative: afebrile, VS normal comfortable, awake, alert Lungs: clear Cor: RRR Abd: soft, nontender. fundus firm Ext: no edema; nontender Hgb this a.m. 7.5 Data 11/25/24 08:50 A&P Assessment and plan (1) Vaginal delivery: PPD #1 doing well discharge to home today instructions and precautions given call/return if fever, chills, headache, blurry vision, nausea, vomiting, abdominal pain; vaginal bleeding or discharge; shortness of breath, chest pain, leg pains or swelling; inability to void, perineal pain or swelling; feelings of depression or mood changes; thoughts of suicide or harming others; inability to care for baby. f/u in 2 weeks or PRN (2) Anemia: Rx FeSO4 325 mg po 1-2 x daily Call / go to ER if dizziness, weakness, palpitations, shortness of breath, chest pain PDMP PDMP Reviewed: Not Reviewed Attestations 2 Medical Necessity Statement*: patient s/p vaginal delivery, plan discharge to home today Coding Level of Care Code Acute Code for Chg Fwd Diagnoses Vaginal delivery O80 Anemia D64.9
--- NOTE | 2024-11-25 14:35 | PM.OBGYDC ---
Discharge Providers THERMOPLASTIC TECHNICIAN Date of Admission: 11/24/24 07:28 Date of Discharge: 11/25/24 Attending Provider at Admission: David Vang MD Attending Provider at Discharge: David Vang MD Consults: none Diagnoses at Discharge Discharge Diagnosis (1) Vaginal delivery: Details from hospital stay: 24 y.o. at 39 w 2 d no complications admitted with active labor Status: Acute (2) Anemia: Details from hospital stay: 24 y.o. at 39 w 2 d no complications admitted with active labor progressed progress to complete cervical dilatation fetus was reassuring throughout patient delivered vaginally without any complications with repair of second-degree perineal laceration patient with anemia She had no dizziness, weakness, palpitations, tachycardia, or shortness of breath patient was discharged to home on the first day Instructions / precautions were given She was encouraged to take iron supplements Status: Acute Reason for Visit Reason for Visit: ctx Brief History: 24 y.o. at 39 w 2 d no complications admitted with active labor Hospital Course Hospital Course 24 y.o. at 39 w 2 d no complications admitted with active labor progressed progress to complete cervical dilatation fetus was reassuring throughout patient delivered vaginally without any complications with repair of second-degree perineal laceration patient with anemia She had no dizziness, weakness, palpitations, tachycardia, or shortness of breath patient was discharged to home on the first day Instructions / precautions were given She was encouraged to take iron supplements Information Peripartum Data: Infant Delivery Method: Vaginal Laceration description: Perineal - 2nd Degree Episiotomy description: None complications: none Physical Exam Narrative: afebrile, VS normal comfortable, awake, alert Lungs: clear Cor: RRR Abd: soft, nontender. fundus firm Ext: no edema; nontender History History History 2 Term 1 0 Miscarriages/Ectopic 0 Living Children 1 Discharge Data Studies Completed and Pending Laboratory Results WBC 12.13 10^3/uL (3.29-11.43) H 11/25/24 08:50 RBC 2.65 10^6/uL (3.85-5.65) L 11/25/24 08:50 Hgb 7.50 g/dL (11.27-16.99) L 11/25/24 08:50 Hct 22.9 % (36-47) L 11/25/24 08:50 MCV 86.4 fl (85-98) 11/25/24 08:50 MCH 28.3 pg (27-33) 11/25/24 08:50 MCHC 32.8 g/dL (30-55) 11/25/24 08:50 RDW 12.6 % (12.1-15.1) 11/25/24 08:50 Plt Count 217 10^3/cmm (157-399) D 11/25/24 08:50 MPV 10.3 fL (7.4-10.4) 11/25/24 08:50 Neut % (Auto) 89.9 % 11/24/24 07:20 Lymph % (Auto) 6.6 % 11/24/24 07:20 Amelia % (Auto) 2.5 % 11/24/24 07:20 Eos % (Auto) 0.0 % 11/24/24 07:20 Baso % (Auto) 0.1 % 11/24/24 07:20 Neut # (Auto) 16.49 10^3/uL (1.8-7.7) H 11/24/24 07:20 Lymph # (Auto) 1.2 10^3/uL (0.8-4.8) 11/24/24 07:20 Amelia # (Auto) 0.5 10^3/uL (0.2-0.9) 11/24/24 07:20 Eos # (Auto) 0.0 10^3/uL (0.0-0.8) 11/24/24 07:20 Baso # (Auto) 0.0 10^3/uL (0.0-0.1) 11/24/24 07:20 Nucleated RBC % (auto) 0 % 11/24/24 07:20 Nucleated RBCs # 0.0 /100WBC 11/24/24 07:20 Urine Opiates Screen Negative ng/mL (Negative) 11/24/24 07:25 Ur Barbiturates Screen Negative ng/mL (Negative) 11/24/24 07:25 Ur Phencyclidine Scrn Negative ng/mL (Negative) 11/24/24 07:25 Ur Amphetamines Screen Negative ng/mL (Negative) 11/24/24 07:25 U Benzodiazepines Scrn Negative ng/mL (Negative) 11/24/24 07:25 Urine Cocaine Screen Negative ng/mL (Negative) 11/24/24 07:25 U Marijuana (THC) Screen Positive ng/mL (Negative) H 11/24/24 07:25 Blood Type A Positive 11/24/24 07:20 Rho(D) Type Rh positive 11/24/24 07:20 Antibody Screen Negative 11/24/24 07:20 Procedures Performed vaginal delivery repair of second-degree perineal laceration Vitals Last Vital Signs Temp 98.1 F 11/25/24 09:48 Pulse 76 11/25/24 09:48 Resp 16 11/25/24 09:48 BP 127/69 11/25/24 09:48 Pulse Ox 98 11/25/24 09:48 O2 Del Method Room Air 11/25/24 09:48 Results Labs OB ([facility]): Obstetrics 11/03/24 Blood Type A Positive 11/24/24 Antibody Screen Negative 11/24/24 Hct, (36-47) 22.9 % L Today Hgb, (11.27-16.99) 7.50 g/dL L Today Rho(D) Type Rh positive 11/24/24 Plt Count, (157-399) 217 10^3/cmm Δ Today Hep Bs Antigen, (Nonreactive) Non-reactive 05/06/24 Hepatitis C Antibody, (Nonreactive) Non-reactive 05/06/24 Rubella IgG Antibody, (0.0-10.0) 63.8 IU/mL H 05/06/24 RPR, (Nonreactive) Nonreactive 05/06/24 HIV 1&2 Ab & HIV 1 Ag, (Non-Reactiv) Non-reactive 05/06/24 C.trachomatis RNA (TMA), (NOT DETECTED) Not detected 05/21/24 N.gonorrhoeae RNA (TMA), (NOT DETECTED) Not detected 05/21/24 T. vaginalis Amp RNA, (NOT DETECTED) Not detected 05/21/24 Chlamydia/GC Comment See note 05/21/24 Glucose 1 Hr 50 gm, (85-140) 133 mg/dL 08/14/24 HCG, Qual, (Negative) Positive H 04/17/24 Urine Opiates Screen, (Negative) Negative ng/mL 11/24/24 Ur Barbiturates Screen, (Negative) Negative ng/mL 11/24/24 Ur Phencyclidine Scrn, (Negative) Negative ng/mL 11/24/24 Ur Amphetamines Screen, (Negative) Negative ng/mL 11/24/24 U Benzodiazepines Scrn, (Negative) Negative ng/mL 11/24/24 Urine Cocaine Screen, (Negative) Negative ng/mL 11/24/24 U Marijuana (THC) Screen, (Negative) Positive ng/mL H 11/24/24 Micro Urine Specimen 06/11/24 Discharge Plan Discharge Patient Disposition: Home Condition: Stable Prescriptions: Continued DHA 200 mg capsule 200 mg PO 1XD duloxetine [Cymbalta] 60 mg capsule,delayed release(DR/EC) 60 mg PO DAILY Qty: 30 2RF Discharge Orders: Discharge Order (Routine); Ordered 11/25/24 Ordered By: David Vang Referrals: David Vang MD [Physician, THERMOPLASTIC TECHNICIAN] Referral Note: 6 week follow up january @ 1:45 Discharge Diet: Usual diet Discharge Activity: Increase activity as tolerated Patient Instructions: Depression (GEN), Perineal Care (GEN), Bleeding (GEN), Hemorrhage (GEN), OB Discharge Report, OB Food/Drug Interaction Guide, OB Care at Home, Opioid Safety, OB Home Care, OB [facility] Parent Packet, OB Vaginal Deliveries, OB Vaginal Deliveries - [facility], Abnormal Bleeding, Depression Activity Restrictions/Additional Instructions: Take FeSO4 325 mg po 1-2 x / day Discharge Attestations THERMOPLASTIC TECHNICIAN Time Spent in Discharge Care*: less than 30 min Coding Level of Care Code Acute Code for Chg Fwd Diagnoses Vaginal delivery O80 Anemia D64.9
== END 2024-11-25 12:30 | disposition home or self-care (01) | DRG 807 ==
LOC: OPOB 07:29 → OBGYN 07:29
PROVIDERS: Admitting Provider Obstetrics & Gynecology; Visit Provider Obstetrics & Gynecology
DX: O99.344 Other mental disorders complicating childbirth (principal); Z37.0 Single live birth; F41.9 Anxiety disorder, unspecified; F32.A Depression, unspecified; O70.1 Second degree perineal laceration during delivery; O77.0 Labor and delivery complicated by meconium in amniotic fluid; Z3A.39 39 weeks gestation of pregnancy; F43.10 Post-traumatic stress disorder, unspecified; O90.81 Anemia of the puerperium; D64.9 Anemia, unspecified
CPT/HCPCS: 36415; 59025; 59409; 80306; 85025; 85027; 86850; 86900; 96372; 99211; J2210; J2590; J7121; J9999

== ENCOUNTER → 2025-01-06 14:24 | Outpatient (BNVA) | payer MEDICAID, SELFPAY | PROVIDERS: Visit Provider Nurse Practitioner Women's Health | DX: Z12.4 Encounter for screening for malignant neoplasm of cervix (principal) | CPT/HCPCS: 88175 ==